=== PATIENT | female | born 1955 | race Hispanic/Latino ===

== ENCOUNTER 2018-06-25 09:42 | Observation (INO) | payer BC, OTHER ==
[~2018-06-25] VITALS: Ht 154.9 cm; Wt 87.1 kg
[2018-06-25 10:11] LABS: CREATININE 0.7 mg/dL (0.5-1.5); POTASSIUM 3.5 mmol/L (3.5-5.1)
[2018-06-25 10:12] LABS: BASOPHILS % (AUTO) 0.5 % (0.0-5.0); EOSINOPHILS % (AUTO) 2.2 % (0.0-8.0); HEMATOCRIT 36.6 % (36-48); LYMPHOCYTES % (AUTO) 29.1 % (21.0-51.0); MEAN CORPUSCULAR HEMOGLOBIN 29.7 pg (27.0-33.0); MEAN CORPUSCULAR HGB CONC 33.7 g/dL (32.0-36.0); MEAN CORPUSCULAR VOLUME 88.1 fL (79-99); MONOCYTES % (AUTO) 6.6 % (3.0-13.0); NEUTROPHILS % (AUTO) 61.6 % (40.0-77.0); PLATELET COUNT (AUTO) 246 K/uL (130-400); RED BLOOD CELL COUNT(AUTO) 4.15 MIL/uL (4.00-5.50); RED CELL DISTRIBUTION WIDTH 13.4 % (11.0-15.5); WHITE BLOOD COUNT (AUTO) 6.3 K/uL (4.8-10.8)
[2018-06-25 10:15] LABS: ALBUMIN 3.7 g/dL (3.5-5.0); BILIRUBIN,TOTAL 0.8 mg/dL (0.2-1.0); TOTAL PROTEIN, SERUM 7.3 g/dL (6.0-8.3)
[2018-06-25 10:21] LABS: INR 0.96 (0.85-1.15); PARTIAL THROMBOPLASTIN TIME 26.7 SEC (26.3-35.5); PROTHROMBIN TIME 10.1 SEC (9.6-11.6)
[2018-06-25 10:27] LABS: APPEARANCE,URINE Clear (CLEAR); BILIRUBIN,URINE Negative (NEGATIVE); COLOR,URINE Yellow (YELLOW); GLUCOSE, URINE (UA) Negative (NEGATIVE); KETONES,URINE Negative (NEGATIVE); LEUKOCYTE ESTERASE ,URINE Negative (NEGATIVE); NITRATE,URINE Negative (NEGATIVE); OCCULT BLOOD,URINE Negative (NEGATIVE); PH,URINE >=9.0 (5.0-8.0); PROTEIN,URINE Negative (NEGATIVE); UROBILINOGEN,URINE 0.2 mg/dL (0.2-1.0)
[2018-06-25 10:33] LABS: BACTERIA,URINE Rare /HPF (None Seen); RBC,URINE 0-1 /HPF (0-1); WBC,URINE 0-1 /HPF (0-1)
[2018-06-25 10:34] LABS: SQUAMOUS EPITHELIAL CELL,UR Rare /HPF (0-2)
[2018-06-25 10:38] LABS: AMPHET/METH SCREEN,URINE NEGATIVE (NEGATIVE); BARBITURATE SCREEN, URINE NEGATIVE (NEGATIVE); BENZODIAZEPINES SCREEN,URINE NEGATIVE (NEGATIVE); CANNABINOID SCREEN,URINE NEGATIVE (NEGATIVE); COCAINE SCREEN,URINE NEGATIVE (NEGATIVE); OPIATE SCREEN,URINE NEGATIVE (NEGATIVE); PHENCYCLIDINE SCREEN,URINE NEGATIVE (NEGATIVE)
[2018-06-25] MEDS ORDERED: ASPIRIN 325 MG TABLET ONE (10:46)
[2018-06-25] MEDS ORDERED: NITROGLYCERIN 1GM/1 INCH PACKET TD ONE (10:47)
[2018-06-25] MEDS ORDERED: ONDANSETRON HCL 4 MG/2 ML VIAL IV PRN (12:00)
[2018-06-25] MEDS ORDERED: MORPHINE SULFATE 2 MG/ML 1ML SYG IV PRN (12:00)
[2018-06-25] MEDS ORDERED: NITROGLYCERIN 0.4 MG SL TAB SL PRN (12:00)
[2018-06-25 13:32] LABS: CHOLESTEROL 137 mg/dL (<200); HDL CHOLESTEROL 43 mg/dL (35-85); LDL DIRECT 86 mg/dL (0-99); TRIGLYCERIDES 93 mg/dL (30-200)
[2018-06-25] MEDS ORDERED: MORPHINE SULFATE 2 MG/ML 1ML SYG ONE (13:49)
[2018-06-25] MEDS ORDERED: MONT10TA24 PO (16:11)
[2018-06-25] MEDS ORDERED: METF-444 PO (16:11)
[2018-06-25] MEDS ORDERED: FLUT1DIS5 IH (16:11)
[2018-06-25] MEDS ORDERED: OMEG-79 PO (16:11)
[2018-06-25] MEDS ORDERED: LOSA1TAB42 PO (16:11)
[2018-06-25] MEDS ORDERED: CHOL200074 PO (16:11)
[2018-06-25] MEDS ORDERED: LIRA0.6P SQ (16:11)
[2018-06-25] MEDS ORDERED: CITA40TA6 PO (16:11)
[2018-06-25] MEDS ORDERED: CETI10TA57 PO (16:11)
[2018-06-25] MEDS ORDERED: OMEP20CA10 PO (16:11)
[2018-06-25] MEDS ORDERED: NITR0.4T SL (16:11)
[2018-06-25] MEDS ORDERED: ATOR20TA65 PO (16:11)
[2018-06-25] MEDS ORDERED: METO-391 PO (16:11)
[2018-06-25] MEDS ORDERED: ISOS30TA6 PO (16:11)
[2018-06-25] MEDS ORDERED: MELO-108 PO (16:11)
[2018-06-25 16:25] LABS: CREATINE KINASE, TOTAL 75 U/L (21-232); MYOGLOBIN 38 ng/mL (10-92); TROPONIN I < 0.04 ng/mL (0.00-0.06)
[2018-06-25 16:51] VITALS: BP 143/89
[2018-06-25 19:25] VITALS: BP 137/77
[2018-06-25] MEDS ORDERED: METOPROLOL TARTRATE 25 MG TAB PO SCH (21:00)
[2018-06-25] MEDS: INSULIN HUMULIN R 100 UNIT/ML 3ML SQ SCH (21:00)
[2018-06-25] MEDS: ATORVASTATIN CALCIUM 20 MG TABLET PO SCH (21:00)
[2018-06-25 23:14] LABS: CREATINE KINASE, TOTAL 74 U/L (21-232); MYOGLOBIN 35 ng/mL (10-92); TROPONIN I < 0.04 ng/mL (0.00-0.06)
[2018-06-25 23:24] VITALS: BP 133/86
[2018-06-26 03:53] VITALS: BP 151/91
[2018-06-26 04:54] LABS: BASOPHILS % (AUTO) 0.6 % (0.0-5.0); EOSINOPHILS % (AUTO) 2.1 % (0.0-8.0); HEMATOCRIT 35.5 % (36-48); LYMPHOCYTES % (AUTO) 31.5 % (21.0-51.0); MEAN CORPUSCULAR HEMOGLOBIN 30.1 pg (27.0-33.0); MEAN CORPUSCULAR HGB CONC 34.1 g/dL (32.0-36.0); MEAN CORPUSCULAR VOLUME 88.2 fL (79-99); MONOCYTES % (AUTO) 7.5 % (3.0-13.0); NEUTROPHILS % (AUTO) 58.3 % (40.0-77.0); PLATELET COUNT (AUTO) 240 K/uL (130-400); RED BLOOD CELL COUNT(AUTO) 4.02 MIL/uL (4.00-5.50); RED CELL DISTRIBUTION WIDTH 13.6 % (11.0-15.5); WHITE BLOOD COUNT (AUTO) 7.3 K/uL (4.8-10.8)
[2018-06-26 05:13] LABS: CREATININE 0.7 mg/dL (0.5-1.5); POTASSIUM 3.3 mmol/L (3.5-5.1)
[2018-06-26] MEDS: INSULIN HUMULIN R 100 UNIT/ML 3ML SQ SCH ×4 (06:05→21:00)
[2018-06-26] MEDS ORDERED: POTASSIUM CHLORIDE 10% ELIXIR 20 MEQ/15 ML UDCUP PO PRN (07:15)
[2018-06-26] MEDS ORDERED: POTASSIUM CHLORIDE 10MEQ/100ML 100 ML IV PRN (07:15)
[2018-06-26] MEDS ORDERED: LIDOCAINE HCL-MPF 1% 2ML VIAL IVP PRN (07:15)
[2018-06-26 08:00] VITALS: BP 146/87
[2018-06-26] MEDS ORDERED: VITAMIN D3 PO SCH (09:00)
[2018-06-26] MEDS: ENOXAPARIN SODIUM 40 MG/0.4 ML SYRINGE SQ SCH (10:01)
[2018-06-26] MEDS: CITALOPRAM 20 MG TABLET PO SCH (10:02)
[2018-06-26] MEDS: CETIRIZINE HCL 5 MG TABLET PO SCH (10:03)
[2018-06-26] MEDS: ASPIRIN 81MG TAB.CHEW PO SCH (10:03)
[2018-06-26] MEDS: PANTOPRAZOLE SODIUM 40 MG TABLET.DR PO SCH (10:03)
[2018-06-26] MEDS: ISOSORBIDE MONO 30MG TAB SR PO SCH ×2 (10:03→22:40)
[2018-06-26] MEDS: MONTELUKAST SODIUM 10 MG TAB PO SCH (10:04)
[2018-06-26] MEDS: METOPROLOL TARTRATE 25 MG TAB PO SCH ×2 (10:04→22:40)
[2018-06-26] MEDS: LOSARTAN 100 MG TABLET PO SCH (10:04)
[2018-06-26] MEDS: FISH OIL 1000 MG/CAP PO SCH ×2 (10:04→22:40)
[2018-06-26] MEDS: HYDROCHLOROTHIAZIDE 25 MG TABLET PO SCH (10:04)
[2018-06-26] MEDS: ALBUTEROL SULFATE 0.083% 2.5 MG/3 ML INH IH SCH ×3 (11:37→23:27)
[2018-06-26 12:00] VITALS: BP 117/77
--- NOTE | 2018-06-26 14:18 | NUR ---
Nancy Martinez met with pt who lives with her Robbie- [phone]. Pt works at [employer], is independent of all ADLS, uses CPAP, has no in home care services. Has rx coverage. Denies dc needs, plan is home at in Addendum: 06/26/18 at 1420 by ISSI MORALES Amended: Links added.
[2018-06-26 16:00] VITALS: BP 144/79
[2018-06-26] MEDS: POTASSIUM CHLORIDE 20 MEQ ERTAB PO PRN (17:50)
[2018-06-26] MEDS: BUDESONIDE 0.5 MG/2 ML INH IH SCH (18:03)
[2018-06-26 20:00] VITALS: BP 128/72
[2018-06-26] MEDS ORDERED: ATORVASTATIN CALCIUM 20 MG TABLET PO SCH (21:00)
[2018-06-26] MEDS: ATORVASTATIN CALCIUM 20 MG TABLET PO SCH (22:40)
[2018-06-27 00:24] VITALS: BP 133/80
[2018-06-27 04:00] VITALS: BP 107/68
[2018-06-27] MEDS: ALBUTEROL SULFATE 0.083% 2.5 MG/3 ML INH IH SCH ×2 (06:10→13:56)
[2018-06-27] MEDS: BUDESONIDE 0.5 MG/2 ML INH IH SCH (06:11)
[2018-06-27] MEDS: INSULIN HUMULIN R 100 UNIT/ML 3ML SQ SCH ×2 (07:30→11:30)
[2018-06-27 08:00] VITALS: BP 131/79
[2018-06-27] MEDS ORDERED: REGADENOSON 0.4 MG/5 ML PF SYG IVP SCH (08:00)
[2018-06-27 12:00] VITALS: BP 150/77
[2018-06-27] MEDS: POTASSIUM CHLORIDE 20 MEQ ERTAB PO PRN (12:09)
[2018-06-27] MEDS: ASPIRIN 81MG TAB.CHEW PO SCH (12:09)
[2018-06-27] MEDS: MONTELUKAST SODIUM 10 MG TAB PO SCH (12:09)
[2018-06-27] MEDS: CITALOPRAM 20 MG TABLET PO SCH (12:10)
[2018-06-27] MEDS: METOPROLOL TARTRATE 25 MG TAB PO SCH (12:10)
[2018-06-27] MEDS: ATORVASTATIN CALCIUM 20 MG TABLET PO SCH (12:10)
[2018-06-27] MEDS: FISH OIL 1000 MG/CAP PO SCH (12:10)
[2018-06-27] MEDS: LOSARTAN 100 MG TABLET PO SCH (12:10)
[2018-06-27] MEDS: CETIRIZINE HCL 5 MG TABLET PO SCH (12:11)
[2018-06-27] MEDS: HYDROCHLOROTHIAZIDE 25 MG TABLET PO SCH (12:11)
[2018-06-27] MEDS: ENOXAPARIN SODIUM 40 MG/0.4 ML SYRINGE SQ SCH (12:12)
[2018-06-27] MEDS: ISOSORBIDE MONO 30MG TAB SR PO SCH (12:12)
[2018-06-27] MEDS: PANTOPRAZOLE SODIUM 40 MG TABLET.DR PO SCH (12:12)
== END 2018-06-27 18:00 | disposition home or self-care (01) ==
LOC: EDH 09:42 → EDHIP 11:56 → 3AH 15:02
PROVIDERS: ADMIT Hospitalist; ATTEND Hospitalist
DX: I25.110 Atherosclerotic heart disease of native coronary artery with unstable angina pectoris (principal); E11.9 Type 2 diabetes mellitus without complications; E78.5 Hyperlipidemia, unspecified; I10 Essential (primary) hypertension; M41.9 Scoliosis, unspecified; Z82.0 Family history of epilepsy and other diseases of the nervous system; Z82.3 Family history of stroke; Z82.49 Family history of ischemic heart disease and other diseases of the circulatory system; Z82.5 Family history of asthma and other chronic lower respiratory diseases; Z83.3 Family history of diabetes mellitus; Z90.710 Acquired absence of both cervix and uterus; Z90.49 Acquired absence of other specified parts of digestive tract; Z88.2 Allergy status to sulfonamides; Z88.8 Allergy status to other drugs, medicaments and biological substances; Z79.01 Long term (current) use of anticoagulants; Z79.899 Other long term (current) drug therapy
CPT/HCPCS: 36415 ×2; 71045; 78452; 80048; 80053; 80061; 80305; 81001; 82550 ×3; 82948 ×8; 83036; 83874 ×2; 83880; 84484 ×3; 85025 ×2; 85610; 85730; 93005; 93017; 93306; 94640 ×7; 94664; 96372 ×2; 99283; A4510; A9500 ×2; G0378 ×54; J1650; J2405; J2785; 96374

== ENCOUNTER → 2025-02-14 | Outpatient (CLI) | payer MEDICARE ==
[~2025-02-14] MED LIST: ATOR20TA65 PO; CETI10TA57 PO; CHOL200074 PO; CITA-108 PO; FLUT1DIS5 IH; ISOS30TA92 PO; LIRA0.6P SQ; LOSA1TAB42 PO; MELO-108 PO; METF-444 PO; METO-391 PO; MONT-39 PO; NITR0.4T SL; OMEG-79 PO; OMEP20CA12 PO
[2025-02-14] MEDS: REGADENOSON 0.4 MG/5 ML PF SYG IVP ONE (14:44)
--- NOTE | 2025-02-15 17:46 | HMCSR ---
APPROVED REPORT Height: 5 ft 1in Weight: 173 lbs TEST INDICATIONS SHORTNESS OF BREATH The imaging protocol used to acquire images was Rest Tc-99m/stress Tc-99m 1 day Consent: The procedure was explained and understood by the patient. Informerd consent was witnessed Piper Sullivan RN First, low dose rest was performed then high dose stress. RESTING DATA: The resting ekg shows: NSR Rest SPECT myocardial perfusion imaging was performed in supine position minutes following the intra venous injection of 11 mCi of Tc-99 Sestamibi. Time of rest injection: Date: 02/14/2025 Time of rest imaging: Date: 02/14/2025 PHARMACOLOGIC STRESS: Pharmacologic stress test was performed by injecting regadenoson 0.4 mg IV push followed by the intra venous injection of 29 mCi of Tc-99 Sestamibi. Time of stress injection: Date: 02/14/2025 Time of stress imaging: Date: 02/14/2025 Heart Rate at time of stress injection: 64 bpm. The images were gated to evaluate regional wall motion and calculate left ventricular ejection fracti on. STRESS DETAILS Reason for Termination: Infusion complete Stress Symptoms: Dyspnea; Neck Pain Max HR Achieved: 106 bpm % of APMHR Achieved: 82 Max Blood Pressure: 265/79 mmHg Stress ECG: NSR Study quality was excellent. Lung uptake was Normal. Artifact: none LEFT VENTRICLE The left ventricular ejection fraction was calculated to be 72%.TID = . LV PERFUSION Stress Perfusion Normal Rest Perfusion Normal IMPRESSION Normal pharmacologic nuclear stress test. Conclusion Normal pharmacologic nuclear stress test. NO ischemia NO infarct
== END | disposition home or self-care (01) ==
LOC: RAH 09:06
PROVIDERS: ATTEND Internal Medicine Cardiovascular Disease
DX: R06.02 Shortness of breath (principal)
CPT/HCPCS: 78452; 93017; J2785; A9500 ×2